=== PATIENT | male | born 1950 | race Caucasian/White ===

== ENCOUNTER 2018-12-02 11:22 | Emergency (ER) | payer OTHER ==
[~2018-12-02] VITALS: Ht 175.3 cm; Wt 57.6 kg
[~2018-12-02 11:22] MED LIST: CYCL10 PO; Norco 5-325 Ta1 EACH PO
[2018-12-02] MEDS ORDERED: [UNRECOGNIZED DRUG - OTHER] SC (11:34)
[2018-12-02] MEDS ORDERED: IBUP400 PO (11:34)
[2018-12-02 12:55] LABS: BASOPHILS ABSOLUTE AUTO 0.04 K/mm3 (0.00-0.23); BASOPHILS PERCENT AUTO 1 % (0-2); EOSINOPHILS ABSOLUTE AUTO 0.02 K/mm3 (0.00-0.68); EOSINOPHILS PERCENT AUTO 0 % (0-6); Hematocrit 35.8 % (37.0-53.0); Hemoglobin 11.5 g/dL (13.5-17.5); IMMATURE GRAN ABSOLUTE AUTO 0.05 K/mm3 (0.00-0.10); IMMATURE GRAN PERCENT AUTO 1 % (0-1); LYMPHOCYTES ABSOLUTE AUTO 0.54 K/mm3 (0.84-5.20); LYMPHOCYTES PERCENT AUTO 9 % (21-46); MONOCYTES ABSOLUTE AUTO 0.21 K/mm3 (0.16-1.47); MONOCYTES PERCENT AUTO 4 % (4-13); Mean Corpuscular HGB 29.8 pg (26.0-34.0); Mean Corpuscular HGB Conc 32.1 g/dL (31.5-36.5); Mean Corpuscular Volume 93 fL (80-100); Mean Platelet Volume 9.8 fL (9.1-12.4); NEUTROPHILS PERCENT AUTO 85 % (41-73); Platelet Count 279 K/mm3 (150-400); RDW Coefficient Variation 13.5 % (11.7-14.2); RDW Standard Deviation 45.8 fL (35.1-46.3); Red Blood Cell Count 3.86 M/mm3 (4.30-5.90); White Blood Cell Count 5.86 K/mm3 (4.00-11.30)
[2018-12-02 13:10] LABS: Bilirubin, Urine Neg (Neg); Blood, Urine Neg (Neg); Glucose Qualitative, Urine Neg (Neg); Ketones, Urine 3+ (Neg); Leukocyte Esterase, Urine Neg (Neg); Nitrite, Urine Neg (Neg); Protein, Urine 2+ (Neg); Specific Gravity, Urine 1.015 (1.003-1.022); Urobilinogen, Urine NORM (Normal); pH, Urine 6.5 (5.0-8.0)
[2018-12-02 13:10] LABS: Alanine Aminotransfer (ALT/SGP 20 U/L (12-78); Albumin, Blood 3.8 g/dL (3.4-5.0); Albumin/Globulin Ratio 0.8 (0.8-1.8); Alk Phos 37 U/L (50-136); Anion Gap 6 mmol/L (6-16); Aspartate Aminotrans (AST/SGOT 15 U/L (12-37); Bilirubin, Total 0.6 mg/dL (0.1-1.0); Blood Urea Nitrogen 17 mg/dL (8-24); CO2, Blood 30 mmol/L (21-32); Calcium, Blood 9.4 mg/dL (8.5-10.1); Chloride, Blood 103 mmol/L (98-108); Creatinine, Blood 0.65 mg/dL (0.60-1.20); Globulin, Blood 4.7 g/dL (2.2-4.0); Glomerular Filtration Rate >60 (60-); Glucose, Blood 110 mg/dL (70-99); Sodium, Blood 139 mmol/L (136-145); Total Protein, Blood 8.5 g/dL (6.4-8.2)
[2018-12-02 13:40] LABS: U Amphetamine Screen Not Detected; U Barbituate Screen Not Detected; U Benzodiazapine Screen Not Detected; U Buprenorphine Screen Not Detected; U Cannabinoids Screen DETECTED; U Cocaine Screen Not Detected; U Methadone Screen Not Detected; U Methamphetamine Screen Not Detected; U Opiates Screen Not Detected; U Oxycodone Screen Not Detected; U Phencyclidine Screen Not Detected; U Propoxyphene Screen Not Detected
[2018-12-02 13:59] LABS: Appearance, Urine Clear (Clear); Color, Urine Yellow (P-Yellow)
[2018-12-02 14:02] LABS: Bacteria Mod /hpf; Mucus Light (0-Heavy); Red Blood Cells, Urine Not Seen /hpf (0-2); Squamous Epithelial Cells Not Seen /hpf (Few); White Blood Cells, Urine Rare /hpf (0-5)
[2018-12-02] MEDS ORDERED: LEVE500 PO (14:13)
== END 2018-12-02 14:54 | disposition home or self-care (01) ==
LOC: ER 11:22
PROVIDERS: Emergency Medicine
DX: R56.9 Unspecified convulsions (principal); C61 Malignant neoplasm of prostate; Z79.899 Other long term (current) drug therapy; F17.200 Nicotine dependence, unspecified, uncomplicated
CPT/HCPCS: 70470; 71045; 80053; 81001; 85025; 87086; 93005; 93010; 99285-25; Q9967

== ENCOUNTER → 2018-12-09 | Outpatient (CLI) | payer OTHER ==
[~2018-12-09] MED LIST changes: +IBUP400 PO; +LEVE500 PO; +[UNRECOGNIZED DRUG - OTHER] SC
[2018-12-09 11:57] LABS: Source, Urine Clean Catch
[2018-12-09 12:39] LABS: Appearance, Urine Clear (Clear); Bilirubin, Urine Neg (Neg); Blood, Urine Neg (Neg); Color, Urine Yellow (P-Yellow); Glucose Qualitative, Urine Neg (Neg); Ketones, Urine Neg (Neg); Leukocyte Esterase, Urine Neg (Neg); Nitrite, Urine Neg (Neg); Protein, Urine Neg (Neg); Specific Gravity, Urine 1.005 (1.003-1.022); Urobilinogen, Urine NORM (Normal)
== END | disposition home or self-care (01) ==
LOC: LAB SHORT 11:55 → LAB 11:55
PROVIDERS: Radiology Therapeutic Radiology
DX: R30.0 Dysuria (principal)
CPT/HCPCS: 81003

== ENCOUNTER 2019-12-28 11:02 | Emergency (ER) | payer OTHER ==
[~2019-12-28] VITALS: Ht 180.3 cm; Wt 65.8 kg
[2019-12-28 12:24] LABS: BASOPHILS ABSOLUTE AUTO 0.02 K/mm3 (0.00-0.23); BASOPHILS PERCENT AUTO 0 % (0-2); EOSINOPHILS PERCENT AUTO 0 % (0-6); Hematocrit 40.5 % (37.0-53.0); Hemoglobin 13.5 g/dL (13.5-17.5); IMMATURE GRAN ABSOLUTE AUTO 0.05 K/mm3 (0.00-0.10); IMMATURE GRAN PERCENT AUTO 1 % (0-1); LYMPHOCYTES PERCENT AUTO 3 % (21-46); MONOCYTES ABSOLUTE AUTO 0.31 K/mm3 (0.16-1.47); MONOCYTES PERCENT AUTO 3 % (4-13); Mean Corpuscular HGB 30.1 pg (26.0-34.0); Mean Corpuscular HGB Conc 33.3 g/dL (31.5-36.5); Mean Corpuscular Volume 90 fL (80-100); Mean Platelet Volume 9.8 fL (9.1-12.4); NEUTROPHILS ABSOLUTE AUTO 8.66 K/mm3 (1.96-9.15); NEUTROPHILS PERCENT AUTO 93 % (41-73); Platelet Count 268 K/mm3 (150-400); RDW Coefficient Variation 15.1 % (11.7-14.2); Red Blood Cell Count 4.49 M/mm3 (4.30-5.90); White Blood Cell Count 9.34 K/mm3 (4.00-11.30)
[2019-12-28 12:44] LABS: Alanine Aminotransfer (ALT/SGP 20 U/L (12-78); Albumin, Blood 3.6 g/dL (3.4-5.0); Albumin/Globulin Ratio 0.9 (0.8-1.8); Alk Phos 42 U/L (50-136); Anion Gap 7 mmol/L (6-16); Aspartate Aminotrans (AST/SGOT 31 U/L (12-37); Bilirubin, Total 0.8 mg/dL (0.1-1.0); Blood Urea Nitrogen 15 mg/dL (8-24); Bun/Creatinine Ratio 24.5 (12.0-20.0); CO2, Blood 28 mmol/L (21-32); Calcium, Blood 9.3 mg/dL (8.5-10.1); Chloride, Blood 103 mmol/L (98-108); Creatinine, Blood 0.61 mg/dL (0.60-1.20); Ethanol (Alcohol), Blood, Med <3 mg/dL; Globulin, Blood 4.2 g/dL (2.2-4.0); Glomerular Filtration Rate >60 (60-); Glucose, Blood 140 mg/dL (70-99); Potassium, Blood 4.2 mmol/L (3.5-5.5); Sodium, Blood 138 mmol/L (136-145); Total Protein, Blood 7.8 g/dL (6.4-8.2)
[2019-12-28 12:45] LABS: Troponin I <0.015 ng/mL (0.000-0.040)
[2019-12-28] MEDS ORDERED: Dilantin 100 m100 MG PO (17:48)
== END 2019-12-28 18:39 | disposition home or self-care (01) ==
LOC: ER 11:02
PROVIDERS: Emergency Medicine
DX: R56.9 Unspecified convulsions (principal); F32.9 Major depressive disorder, single episode, unspecified; F17.200 Nicotine dependence, unspecified, uncomplicated; Z85.46 Personal history of malignant neoplasm of prostate; Z85.828 Personal history of other malignant neoplasm of skin
CPT/HCPCS: 36415; 70450; 71045; 80053; 83735; 84484; 85025; 93005; 93010; 96361; 96374; 96375; 99285-25; G0480; J2060; J2405; J7120; Q2009

== ENCOUNTER 2021-03-09 16:57 | Emergency (ER) | payer OTHER ==
[~2021-03-09] VITALS: Ht 180.3 cm; Wt 81.7 kg
[~2021-03-09 16:57] MED LIST changes: +Dilantin 100 m100 MG PO
[2021-03-09 17:32] LABS: BASOPHILS ABSOLUTE AUTO 0.03 K/mm3 (0.00-0.23); BASOPHILS PERCENT AUTO 0 % (0-2); EOSINOPHILS ABSOLUTE AUTO 0.06 K/mm3 (0.00-0.68); EOSINOPHILS PERCENT AUTO 1 % (0-6); Hematocrit 41.4 % (37.0-53.0); Hemoglobin 13.6 g/dL (13.5-17.5); IMMATURE GRAN ABSOLUTE AUTO 0.04 K/mm3 (0.00-0.10); IMMATURE GRAN PERCENT AUTO 0 % (0-1); LYMPHOCYTES ABSOLUTE AUTO 0.59 K/mm3 (0.84-5.20); LYMPHOCYTES PERCENT AUTO 6 % (21-46); MONOCYTES PERCENT AUTO 6 % (4-13); Mean Corpuscular HGB 30.6 pg (26.0-34.0); Mean Corpuscular HGB Conc 32.9 g/dL (31.5-36.5); Mean Corpuscular Volume 93 fL (80-100); Mean Platelet Volume 9.9 fL (9.1-12.4); NEUTROPHILS ABSOLUTE AUTO 8.08 K/mm3 (1.96-9.15); NEUTROPHILS PERCENT AUTO 86 % (41-73); Platelet Count 239 K/mm3 (150-400); RDW Coefficient Variation 13.3 % (11.7-14.2); RDW Standard Deviation 45.2 fL (35.1-46.3); Red Blood Cell Count 4.45 M/mm3 (4.30-5.90)
[2021-03-09 17:52] LABS: Alanine Aminotransfer (ALT/SGP 36 U/L (12-78); Albumin, Blood 3.9 g/dL (3.4-5.0); Albumin/Globulin Ratio 0.9 (0.8-1.8); Alk Phos 69 U/L (50-136); Anion Gap 5 mmol/L (6-16); Aspartate Aminotrans (AST/SGOT 20 U/L (12-37); Bilirubin, Total 0.4 mg/dL (0.1-1.0); Blood Urea Nitrogen 16 mg/dL (8-24); Bun/Creatinine Ratio 21.6 (12.0-20.0); CO2, Blood 27 mmol/L (21-32); Calcium, Blood 9.5 mg/dL (8.5-10.1); Chloride, Blood 104 mmol/L (98-108); Creatinine, Blood 0.74 mg/dL (0.60-1.20); Globulin, Blood 4.2 g/dL (2.2-4.0); Glomerular Filtration Rate >60 (60-); Glucose, Blood 123 mg/dL (70-99); Potassium, Blood 3.9 mmol/L (3.5-5.5); Sodium, Blood 136 mmol/L (136-145); Total Protein, Blood 8.1 g/dL (6.4-8.2)
[2021-03-09] MEDS ORDERED: PHENY100ER PO ×2 (19:51→19:52)
[2021-03-09] MEDS ORDERED: DOCU100 PO (21:01)
[2021-03-09] MEDS ORDERED: PROCTOSOL HC EXT (21:01)
[2021-03-09] MEDS ORDERED: AMOCLA875 PO (21:01)
== END 2021-03-09 21:28 | disposition home or self-care (01) ==
LOC: ER 16:57
PROVIDERS: Physician Assistant
DX: K52.9 Noninfective gastroenteritis and colitis, unspecified (principal); K59.00 Constipation, unspecified; K64.4 Residual hemorrhoidal skin tags
CPT/HCPCS: 74177; 80053; 85025; 86850; 86900; 86901; 93005; 93010; 99284-25; A9270; J7030; Q9967

== ENCOUNTER → 2022-06-17 | Outpatient (CLI) | payer OTHER ==
[~2022-06-17] MED LIST changes: +AMOCLA875 PO; +DOCU100 PO; +PHENY100ER PO; +PROCTOSOL HC EXT
[2022-06-17 11:26] LABS: BASOPHILS ABSOLUTE AUTO 0.02 K/mm3 (0.00-0.23); BASOPHILS PERCENT AUTO 0 % (0-2); EOSINOPHILS ABSOLUTE AUTO 0.17 K/mm3 (0.00-0.68); EOSINOPHILS PERCENT AUTO 3 % (0-6); Hematocrit 40.3 % (37.0-53.0); Hemoglobin 13.4 g/dL (13.5-17.5); IMMATURE GRAN ABSOLUTE AUTO 0.05 K/mm3 (0.00-0.10); IMMATURE GRAN PERCENT AUTO 1 % (0-1); LYMPHOCYTES ABSOLUTE AUTO 0.99 K/mm3 (0.84-5.20); LYMPHOCYTES PERCENT AUTO 17 % (21-46); MONOCYTES ABSOLUTE AUTO 0.52 K/mm3 (0.16-1.47); MONOCYTES PERCENT AUTO 9 % (4-13); Mean Corpuscular HGB 30.7 pg (26.0-34.0); Mean Corpuscular HGB Conc 33.3 g/dL (31.5-36.5); Mean Corpuscular Volume 92 fL (80-100); Mean Platelet Volume 9.8 fL (9.1-12.4); NEUTROPHILS ABSOLUTE AUTO 3.99 K/mm3 (1.96-9.15); NEUTROPHILS PERCENT AUTO 70 % (41-73); Platelet Count 238 K/mm3 (150-400); RDW Coefficient Variation 13.8 % (11.7-14.2); RDW Standard Deviation 46.5 fL (35.1-46.3); Red Blood Cell Count 4.37 M/mm3 (4.30-5.90); White Blood Cell Count 5.74 K/mm3 (4.00-11.30)
[2022-06-17 11:48] LABS: Albumin, Blood 3.6 g/dL (3.4-5.0); Albumin/Globulin Ratio 0.9 (0.8-1.8); Bilirubin, Total 0.2 mg/dL (0.1-1.0); Bun/Creatinine Ratio 21.7 (12.0-20.0); Calcium, Blood 9.8 mg/dL (8.5-10.1); Creatinine, Blood 0.83 mg/dL (0.60-1.20); Globulin, Blood 3.9 g/dL (2.2-4.0); Potassium, Blood 4.5 mmol/L (3.5-5.5); Total Protein, Blood 7.5 g/dL (6.4-8.2)
== END | disposition home or self-care (01) ==
LOC: LAB SHORT 11:16 → LAB 11:16
PROVIDERS: Family Medicine
DX: R07.9 Chest pain, unspecified (principal)
CPT/HCPCS: 80053; 83880; 84484; 85025

== ENCOUNTER 2022-07-01 09:27 | Emergency (ER) | payer OTHER ==
[~2022-07-01] VITALS: Ht 180.3 cm; Wt 105.7 kg
[2022-07-01 10:30] LABS: Bun/Creatinine Ratio 23.4 (12.0-20.0); Calcium, Blood 9.9 mg/dL (8.5-10.1); Creatinine, Blood 0.68 mg/dL (0.60-1.20); Potassium, Blood 4.4 mmol/L (3.5-5.5)
[2022-07-01] MEDS ORDERED: K-TAB ER20 ME1 PO (10:39)
[2022-07-01] MEDS ORDERED: Lasix40 MG PO (10:39)
== END 2022-07-01 10:43 | disposition home or self-care (01) ==
LOC: ER 09:27
PROVIDERS: Emergency Medicine
DX: R60.0 Localized edema (principal); F17.290 Nicotine dependence, other tobacco product, uncomplicated; Z79.899 Other long term (current) drug therapy
CPT/HCPCS: 36415; 80048

== ENCOUNTER 2022-07-16 17:44 | Emergency (ER) | payer OTHER ==
[~2022-07-16] VITALS: Ht 180.3 cm; Wt 104.8 kg
[~2022-07-16 17:44] MED LIST changes: +K-TAB ER20 ME1 PO; +Lasix40 MG PO
[2022-07-16] MEDS ORDERED: FUROSEMIDE40 MG PO (18:19)
[2022-07-16] MEDS ORDERED: SPIRIVA RESPIMAT4 G3 IH (18:20)
[2022-07-16] MEDS ORDERED: Potassium Chlo20 ME1 PO (18:20)
[2022-07-16] MEDS ORDERED: PHENYTOIN SODI100 MG PO (18:20)
[2022-07-16 18:25] LABS: BASOPHILS ABSOLUTE AUTO 0.03 K/mm3 (0.00-0.23); BASOPHILS PERCENT AUTO 1 % (0-2); EOSINOPHILS ABSOLUTE AUTO 0.22 K/mm3 (0.00-0.68); EOSINOPHILS PERCENT AUTO 4 % (0-6); Hematocrit 39.9 % (37.0-53.0); Hemoglobin 12.8 g/dL (13.5-17.5); IMMATURE GRAN ABSOLUTE AUTO 0.03 K/mm3 (0.00-0.10); IMMATURE GRAN PERCENT AUTO 1 % (0-1); LYMPHOCYTES ABSOLUTE AUTO 0.99 K/mm3 (0.84-5.20); LYMPHOCYTES PERCENT AUTO 19 % (21-46); MONOCYTES ABSOLUTE AUTO 0.41 K/mm3 (0.16-1.47); MONOCYTES PERCENT AUTO 8 % (4-13); Mean Corpuscular HGB 29.2 pg (26.0-34.0); Mean Corpuscular HGB Conc 32.1 g/dL (31.5-36.5); Mean Corpuscular Volume 91 fL (80-100); Mean Platelet Volume 9.9 fL (9.1-12.4); NEUTROPHILS ABSOLUTE AUTO 3.58 K/mm3 (1.96-9.15); NEUTROPHILS PERCENT AUTO 68 % (41-73); Platelet Count 243 K/mm3 (150-400); RDW Coefficient Variation 13.7 % (11.7-14.2); Red Blood Cell Count 4.39 M/mm3 (4.30-5.90); White Blood Cell Count 5.26 K/mm3 (4.00-11.30)
[2022-07-16 18:50] LABS: Albumin, Blood 3.5 g/dL (3.4-5.0); Albumin/Globulin Ratio 0.9 (0.8-1.8); Bilirubin, Total 0.2 mg/dL (0.1-1.0); Bun/Creatinine Ratio 23.9 (12.0-20.0); Calcium, Blood 9.1 mg/dL (8.5-10.1); Creatinine, Blood 0.88 mg/dL (0.60-1.20); Globulin, Blood 3.9 g/dL (2.2-4.0); Potassium, Blood 4.1 mmol/L (3.5-5.5); Total Protein, Blood 7.4 g/dL (6.4-8.2)
[2022-07-16] MEDS ORDERED: Prednisone20 MG PO (20:23)
[2022-07-16] MEDS ORDERED: FLUT1DIS5 INH (20:23)
== END 2022-07-16 20:35 | disposition home or self-care (01) ==
LOC: ER 17:44
PROVIDERS: Emergency Medicine
DX: J44.9 Chronic obstructive pulmonary disease, unspecified (principal); R79.89 Other specified abnormal findings of blood chemistry; G40.909 Epilepsy, unspecified, not intractable, without status epilepticus; F32.A Depression, unspecified; Z79.899 Other long term (current) drug therapy; Z87.891 Personal history of nicotine dependence; Z28.310 Unvaccinated for COVID-19
CPT/HCPCS: 71260; 80053; 83880; 84484; 85025; 93005; 93010; 99284-25; J7512; Q9967

== ENCOUNTER → 2023-02-27 | Outpatient (CLI) | payer OTHER ==
[~2023-02-27] MED LIST changes: +FLUT1DIS5 INH; +FUROSEMIDE40 MG PO; +PHENYTOIN SODI100 MG PO; +Potassium Chlo20 ME1 PO; +Prednisone20 MG PO; +SPIRIVA RESPIMAT4 G3 IH
== END | disposition home or self-care (01) ==
LOC: LAB 10:20 → LAB SHORT 10:20
DX: E11.8 Type 2 diabetes mellitus with unspecified complications (principal)
CPT/HCPCS: 82043

== ENCOUNTER 2024-09-19 16:59 | Inpatient (IN) | payer OTHER ==
[~2024-09-19] VITALS: Ht 180.3 cm; Wt 114.5 kg
[~2024-09-19 16:59] MED LIST changes: +ALBU90OI INH; +PRED20 PO; -SPIRIVA RESPIMAT4 G3 IH; +SPIRIVA RESPIMAT4 G3 PO
[2024-09-19] MEDS ORDERED: Morphine Sulfate 4 MG/1 ML Injection IV ONE (17:10)
[2024-09-19 17:14] LABS: BASOPHILS ABSOLUTE AUTO 0.05 K/mm3 (0.00-0.23); BASOPHILS PERCENT AUTO 1 % (0-2); EOSINOPHILS ABSOLUTE AUTO 0.16 K/mm3 (0.00-0.68); EOSINOPHILS PERCENT AUTO 2 % (0-6); IMMATURE GRAN ABSOLUTE AUTO 0.21 K/mm3 (0.00-0.10); IMMATURE GRAN PERCENT AUTO 2 % (0-1); LYMPHOCYTES ABSOLUTE AUTO 2.29 K/mm3 (0.84-5.20); LYMPHOCYTES PERCENT AUTO 25 % (21-46); MONOCYTES ABSOLUTE AUTO 0.71 K/mm3 (0.16-1.47); MONOCYTES PERCENT AUTO 8 % (4-13); Mean Corpuscular HGB 28.7 pg (26.0-34.0); Mean Corpuscular HGB Conc 32.6 g/dL (31.5-36.5); Mean Corpuscular Volume 88 fL (80-100); Mean Platelet Volume 9.5 fL (9.1-12.4); NEUTROPHILS ABSOLUTE AUTO 5.92 K/mm3 (1.96-9.15); NEUTROPHILS PERCENT AUTO 64 % (41-73); Platelet Count 296 K/mm3 (150-400); RDW Coefficient Variation 15.3 % (11.7-14.2); RDW Standard Deviation 49.3 fL (35.1-46.3); Red Blood Cell Count 4.88 M/mm3 (4.30-5.90); White Blood Cell Count 9.34 K/mm3 (4.00-11.30)
[2024-09-19 17:33] LABS: International Normalized Ratio 0.97; Prothrombin Time Results 10.4 Sec (9.7-11.5)
[2024-09-19 17:34] LABS: Ethanol (Alcohol), Blood, Med <3 mg/dL; Salicylate 2.7 mg/dL (2.8-20.0)
[2024-09-19 17:36] LABS: Alanine Aminotransfer (ALT/SGP 33 U/L (12-78); Albumin, Blood 3.8 g/dL (3.4-5.0); Albumin/Globulin Ratio 0.9 (0.8-1.8); Alk Phos 51 U/L (50-136); Anion Gap 13 mmol/L (3-11); Aspartate Aminotrans (AST/SGOT 38 U/L (12-37); Bilirubin, Total 0.2 mg/dL (0.1-1.0); Blood Urea Nitrogen 20 mg/dL (8-24); Bun/Creatinine Ratio 21.5 (12.0-20.0); CO2, Blood 23 mmol/L (21-32); Calcium, Blood 8.8 mg/dL (8.5-10.1); Chloride, Blood 105 mmol/L (98-108); Creatinine, Blood 0.93 mg/dL (0.60-1.20); Globulin, Blood 4.2 g/dL (2.2-4.0); Glomerular Filtration Rate 86 (60-); Glucose, Blood 176 mg/dL (70-99); Potassium, Blood 3.9 mmol/L (3.5-5.5); Sodium, Blood 137 mmol/L (136-145)
[2024-09-19 17:37] LABS: Acetaminophen, Random <2.0 ug/mL (10.0-30.0)
[2024-09-19] MEDS ORDERED: Ipratropium/Albuterol SulF 2.5-0.5MG/3 ML Amp INH ONE (18:25)
[2024-09-19] MEDS ORDERED: Tiotropium Bromide 2.5 MCG/ACT MIST INHAL (10 ACT/4 GM) INH SCH (20:00)
[2024-09-19] MEDS ORDERED: Albuterol 2.5 MG/3 ML VIAL INH PRN (20:00)
[2024-09-19] MEDS ORDERED: Mometasone/Formoterol MDI 200/5 mcg 13 GM INH SCH (20:05)
[2024-09-19] MEDS ORDERED: FentaNYL Citrate 50 MCG/ML 2 ML Injection IV PRN ×2 (21:05→22:00)
[2024-09-19] MEDS ORDERED: FARXIGA10 MG PO (22:17)
[2024-09-19] MEDS ORDERED: Crestor40 MG PO (22:18)
[2024-09-19 22:21] LABS: Source, Urine Clean Catch
[2024-09-19 22:22] VITALS: BP 126/69
[2024-09-19 22:23] LABS: Appearance, Urine Clear (Clear); Bilirubin, Urine Neg (Neg); Blood, Urine 2+ (Neg); Color, Urine Yellow (P-Yellow); Glucose Qualitative, Urine 4+ (Neg); Ketones, Urine Neg (Neg); Leukocyte Esterase, Urine Neg (Neg); Nitrite, Urine Neg (Neg); Protein, Urine 2+ (Neg); Urobilinogen, Urine NORM (Normal); pH, Urine 6.5 (5.0-8.0)
[2024-09-19 22:31] LABS: Bacteria Not Seen /hpf; Hyaline Casts 0-2 /lpf (0-2); Red Blood Cells, Urine 0-2 /hpf (0-2); Squamous Epithelial Cells Rare /hpf (Few); White Blood Cells, Urine Not Seen /hpf (0-5)
[2024-09-19 22:37] LABS: U Amphetamine Screen Not Detected; U Barbituate Screen DETECTED; U Benzodiazapine Screen Not Detected; U Buprenorphine Screen Not Detected; U Cannabinoids Screen Not Detected; U Cocaine Screen Not Detected; U Methadone Screen Not Detected; U Methamphetamine Screen Not Detected; U Opiates Screen DETECTED; U Oxycodone Screen Not Detected; U Phencyclidine Screen Not Detected
[2024-09-20 05:18] VITALS: BP 134/62
--- NOTE | 2024-09-20 05:36 | NUR ---
SHIFT SUMMARY NOC ADMIT FROM ED FOR SI HANGING ATTMEPT. PT ATTEMPTED TO HAND SELF FROM BRIDGE AFTER DOMESTIC DISPUTE WITH SPOUSE, THE ROPE AROUND NECK BROKE WHEN PT JUMPED. PT HAS RED ROPE BURN AROUND NECK WELL HEMATOMA ON L SIDE TEMPORAL, ALSO ABRASIONS BL KNEES FROM FALLING ON KNEES DURING IMPACT. PT HAS BEEN A/O X 4. PLEASANT AND COOPERATIVE WITH CARE SINCE ADMIT TO FLOOR. ROOM HAS BEEN MITIGATED FOR SI, WELL 1:1 NON CLINICAL SITTER. PT REPORTS NO CURRENT SI OR PLANS TO HARM OTHERS AT THIS TIME. PT HAS PSYCH CONSULT SCHEDULED FOR TODAY. PT ALSO HAS ACTIVE HX OF SEIZURES AND TAKES DILANTIN BID, AND FIRST DOSE GIVEN, AFTER MORNING DOSE NOT TAKEN. PT HAD BRIEF BOUT OF N/V AND VOMITTED TWICE, WHEN ASSESS PT DENIES ANY WORSENING NECK PAIN, SWALLOWING DIFFICULTIES, OR INCREASED SOB. PT ON O2 3L/NC WHICH IS BASELINE FOR PT 2-4L, SPO2 >92%. PT REPORTS BACK PAIN FROM FALL FROM SI ATTEMPT AND PREFERS TO SLEEP IN CHAIR INSTEAD OF BED. PT CURRENTLY RESTING WITH BED IN LOWEST POSITION, AND CALL LIGHT WITHIN REACH.
[2024-09-20 07:08] VITALS: BP 140/65
[2024-09-20] MEDS ORDERED: Enoxaparin 40 MG/0.4 ML SYR SC SCH (09:00)
[2024-09-20] MEDS ORDERED: FLUTICASONE-SAL12 G1 PO (15:32)
[2024-09-20 15:36] VITALS: BP 152/65
--- NOTE | 2024-09-20 15:48 | NUR ---
SHIFT SUMMARY- PT HAS A 1:1 SITTER FOR SI. PT STATES HIS PAIN IS WELL MANAGED AT THIS TIME, HE HAS PAIN, BUT IT'S "NOTHING I CAN'T HANDLE RIGHT NOW." PT WAS INSTRUCTED TO CALL FOR ASSISTANCE IF THE PAIN GETS TO A LEVEL WHERE HE FEELS HE NEEDS PAIN MEDICATION. PROVIDED THE PT WITH A WARM BLANKET, HE IS RECLINED IN HIS BED IN CHAIR MODE AT THIS TIME AND SEEMS TO BE TOLLERATING THAT BETTER THAN THE CHAIR. PT WAS SEEN BY DR MUIR AND HE ORDERED NEW MEDICATIONS TO START THIS EVENING. PT DAUGHTER HAS BEEN IN TO SEE HIM, SPOUSE CAME IN WHEN THE DR WAS AT THE BEDSIDE AND SHE LEFT CLOTHES FOR HIM (PLACED IN THE CHART CUBB[place]). PT STILL HIGH SI, ALTHOUGH HE DENIES ANY THOUGHTS AT THIS TIME.
[2024-09-20] MEDS ORDERED: TraMADol HCl 50 MG Tab PO PRN (19:35)
[2024-09-20 19:50] VITALS: BP 145/74
[2024-09-20] MEDS ORDERED: QUEtiapine Fumarate 25 MG Tab PO SCH (21:00)
--- NOTE | 2024-09-21 04:11 | NUR ---
SHIFT SUMMARY ADMITTED FOR SI. FULL CODE. I DID CALL THE HOSPITALIST THIS SHIFT FOR PO PAIN RX. IV PAIN RX WAS DC'D. THE PT STATES THAT THE PO PAIN RX HAS BEEN VERY EFFECTIVE AND HE HAS GOTTEN GOOD SLEEP THIS SHIFT. HE IS CALM AND COOPERATIVE WITH CARE. SITTER IN ROOM. PSYCH CONSULT IS DR. RICHMOND. 3 LPM O2 VIA NC. REGULAR DIET.
[2024-09-21 04:49] VITALS: BP 139/74
[2024-09-21 06:56] LABS: BASOPHILS ABSOLUTE AUTO 0.02 K/mm3 (0.00-0.23); BASOPHILS PERCENT AUTO 0 % (0-2); EOSINOPHILS ABSOLUTE AUTO 0.18 K/mm3 (0.00-0.68); EOSINOPHILS PERCENT AUTO 3 % (0-6); Hematocrit 40.3 % (37.0-53.0); Hemoglobin 12.7 g/dL (13.5-17.5); IMMATURE GRAN ABSOLUTE AUTO 0.03 K/mm3 (0.00-0.10); IMMATURE GRAN PERCENT AUTO 1 % (0-1); LYMPHOCYTES ABSOLUTE AUTO 0.87 K/mm3 (0.84-5.20); LYMPHOCYTES PERCENT AUTO 14 % (21-46); MONOCYTES PERCENT AUTO 10 % (4-13); Mean Corpuscular HGB 28.3 pg (26.0-34.0); Mean Corpuscular HGB Conc 31.5 g/dL (31.5-36.5); Mean Corpuscular Volume 90 fL (80-100); Mean Platelet Volume 9.9 fL (9.1-12.4); NEUTROPHILS ABSOLUTE AUTO 4.41 K/mm3 (1.96-9.15); NEUTROPHILS PERCENT AUTO 72 % (41-73); Platelet Count 210 K/mm3 (150-400); RDW Coefficient Variation 15.6 % (11.7-14.2); Red Blood Cell Count 4.49 M/mm3 (4.30-5.90); White Blood Cell Count 6.11 K/mm3 (4.00-11.30)
[2024-09-21 07:13] LABS: Bun/Creatinine Ratio 28.8 (12.0-20.0); Calcium, Blood 8.8 mg/dL (8.5-10.1); Creatinine, Blood 0.83 mg/dL (0.60-1.20); Potassium, Blood 4.3 mmol/L (3.5-5.5)
[2024-09-21] MEDS ORDERED: Docusate Sodium/Senna 1 Tab PO PRN (13:10)
[2024-09-21] MEDS ORDERED: Polyethylene Glycol 3350 17 gm PO PRN (13:15)
[2024-09-21 15:54] VITALS: BP 137/68
[2024-09-21 19:10] VITALS: BP 146/62
--- NOTE | 2024-09-21 20:03 | NUR ---
SHIFT SUMMARY- PT HAS HAD NO ACUTE CHANGE T/O THE SHIFT. HE IS ALERT AND ORIENTED, HIS CALLED TO CHECK IN ON HIM, THE PT GAVE VERBAL CONSENT FOR STAFF TO TALK TO HER. PT IS SITTING IN THE RECLINER AT THE TIME OF REPORT. MEDICATED WITH TRAMADOL AT SHIFT CHANGE, NO S&S OF DISTRESS NOTED 1:1 SITTER PRESENT IN THE ROOM.
[2024-09-22 03:46] VITALS: BP 133/66
--- NOTE | 2024-09-22 04:02 | NUR ---
SHIFT SUMMARY ADMITTED FOR SI. FULL CODE. HIGH SI PRECAUTIONS. PLAN IS FOR INPATIENT PSYCH PLACEMENT. REGULAR DIET. STANDBY ASSIST - BRP. DR. MUIR IS PSYCH CONSULT. A&O X4. ON 3 1/2 LPM O2, ON 2-4 LPM O2 @ BASELINE. HX: COPD, PTSD. MEDICATED FOR PAIN THIS SHIFT. ULTRAM PO CONTINUES TO BE EFFECTIVE. HE IS PLEASANT AND COOPERATIVE WITH CARE.
[2024-09-22 07:07] VITALS: BP 143/82
--- NOTE | 2024-09-22 10:30 | NUR ---
PT HAS BECOME AGGITATED AFTER DR BECKETT CAME TO SEE HIM- PT DECIDED AFTER DR BECKETT TALKED TO HIM ABOUT INPATIENT PSYCH FACILITY AT [place], THAT HE NEEDED TO GET A DATA MANAGER. CALLED CARGO TRIM[employer] WHO CONFIRMED THE PT IS NOT IN A SITUATION WHERE A BRANDS EDITOR IS AVAILABLE TO HIM; HOWEVER HE WAS PROVIDED A PHONE AND OFFERED A PHONE BOOK TO OBTAIN LEGAL [place] IF HE WOULD LIKE. HE DECLINES THIS AT THIS TIME SAYING HE DOES NOT HAVE MONEY FOR A DATA MANAGER "JUST FORGET IT." HE ATTEMPTED TO CALL BOTH OF HIS DAUGHTERS AND HIS , AND WAS UNABLE TO REACH THEM. NOW HE IS AGGITATED SAYING HIS HAS HIS BANK CARDS AND "HAS PROBABLY ALREADY DRAINED THE ACCOUNTS." YESTERDAY HE VERBALLY TOLD THIS RN IS WAS OK TO TALK WITH HER. TODAY HE HAS DECIDED SHE CAN NOT HAVE ANY INFORMATION.
[2024-09-22] MEDS ORDERED: QUEtiapine Fumarate 25 MG Tab PO PRN (10:55)
[2024-09-22 15:16] VITALS: BP 139/89
--- NOTE | 2024-09-22 18:30 | NUR ---
Pt alert and oriented times four. Got angry earlier in the day and became distrustful of , did not want us to share information with her today. Two of his daughters visited today and spent time with pt, pt appears more calm with visits. Sitter remains in room. Pain controlled with PRN tramadol x 1.
[2024-09-22 20:13] VITALS: BP 139/61
[2024-09-22] MEDS ORDERED: QUEtiapine Fumarate 50 MG TAB PO SCH (21:00)
[2024-09-23 03:50] VITALS: BP 144/72
--- NOTE | 2024-09-23 06:46 | NUR ---
SHIFT SUMMARY PT IS ALERT AND ORIENTED TIMES 4. PT IS POLITE AND RECEPTIVE TO CARE AND SOCIAL WITH STAFF WHEN DOING ROUNDS. PT IS ABLE TO MAKE NEEDS KNOWN AND ABLE TO AMBULATE FROM BED TO RECLINER, AND TO THE RESTROOM. PT WAS HS MED COMPLIANT. PT SPENT A MAJORITY OF TIME IN RECLINER, WATCHING TV. BED IN LOW POSITION, CALL LIGHT WITHIN REACH, RAILS TIMES 2.
[2024-09-23 07:08] VITALS: BP 141/64
[2024-09-23] MEDS ORDERED: Empagliflozin 25 MG TAB PO SCH (09:00)
[2024-09-23] MEDS ORDERED: Rosuvastatin Calcium 10 MG Tab PO SCH (09:00)
[2024-09-23] MEDS ORDERED: MetFORMIN HCl 500 mg PO SCH (09:00)
[2024-09-23 16:55] VITALS: BP 152/67
--- NOTE | 2024-09-23 17:53 | NUR ---
SHIFT SUMMARY: PT A/O X4. PLEASANT AND COOPERATIVE WITH CARE. C/O PAIN ONCE THIS SHIFT IN LOWER BACK. MEDICATED WITH PRN TRAMADOL ONCE WITH AM MEDICATIONS. PT DAUGHTER IN ROOM T/O SHIFT. DR. MUIR IN TO SEE PT THIS SHIFT. INCREASED NIGHT TIME SEROQUEL. CALL LIGHT IN REACH.
[2024-09-23 19:49] VITALS: BP 147/89
[2024-09-23] MEDS ORDERED: QUEtiapine Fumarate 100 MG Tab PO SCH (21:00)
[2024-09-24 04:58] VITALS: BP 140/70
--- NOTE | 2024-09-24 06:30 | NUR ---
SHIFT SUMMARY PT IS ALERT AND ORIENTED TIMES 4. PT IS POLITE AND RECEPTIVE TO CARE AND SOCIAL WITH STAFF WHEN DOING ROUNDS. PT WAS VISITED BY DAUGHTER AND PLAYED CHESS. PT APPEARS IN VERY GOOD SPIRITS TODAY. PT IS ABLE TO MAKE NEEDS KNOWN AND ABLE TO AMBULATE FROM BED TO RECLINER, AND TO THE RESTROOM. PT WAS HS MED COMPLIANT. PT SPENT A MAJORITY OF TIME IN RECLINER, WATCHING TV. BED IN LOW POSITION, CALL LIGHT WITHIN REACH, RAILS TIMES 2.
[2024-09-24 07:18] VITALS: BP 154/64
--- NOTE | 2024-09-24 13:26 | NUR ---
NOTE: PATIENT A/OX4, CALM, PLEASANT AND COOPERATIVE c CARE. PATIENT DENIES SI OR HARMING HIMSELF OR OTHERS. DR. GALLEGOS CAME IN AND SPOKE TO PATIENT, SUICIDE PRECAUTIONS DC'D. 1:1 SITTER DC'D. STUDIO CONTROL OPERATOR, SRAVANI SHIN SPOKE TO PATIENT, PLAN TO DISCHARGE HOME THIS PM. PER STUDIO CONTROL OPERATOR, SRAVANI SHIN DAUGHTER WILL BE BRINGING PORTABLE HOME O2 THIS PM.
[2024-09-24 16:09] VITALS: BP 149/108
--- NOTE | 2024-09-24 16:38 | NUR ---
SHIFT SUMMARY: PATIENT A/OX4, PLEASANT AND COOPERATIVE c CARE. PATIENT DENIES SI OR HARMING HIMSELF/OTHERS. SUICIDE PRECAUTION, 1:1 SITTER WAS DC'D AT 1326 PER ORDER. PATIENT REPORTS PAIN TO HIP, MEDICATED FOR PAIN PER EMAR c GOOD EFFECT. PATIENT RECEIVED SCHEDULED MEDS PER EMAR. PATIENT HAS GREAT APPETITE, CONTINENT OF BLADDER, AMBULATES TO BATHROOM INDEPENDENTLY. VITAL SIGNS REVIEWED. PATIENT UP IN THE CHAIR ON/OFF T/O THE DAY.
[2024-09-24] MEDS ORDERED: QUET100 PO (17:18)
[2024-09-24] MEDS ORDERED: METF500 PO (17:18)
--- NOTE | 2024-09-24 17:43 | NUR ---
DISCHARGE SUMMARY: PATIENT DISCHARGE HOME. DISCHARGE INSTRUCTIONS PACKET GIVEN TO PATIENT. EDUCATED PATIENT REGARDING ADMITTING DX'S OF SI, S/S, TX, SELF CARE, NEW RX AND TO F/U c PCP. PATIENT VERBALIZED UNDERSTANDING AND NO FURTHER QUESTIONS. RX WAS FAXED TO PATIENT PREFERRED PHARMACY ([facility] ALL PATIENT PERSONAL BELONGINGS WERE SENT HOME c THE PATIENT. PATIENT LEFT THE ROOM AT 1736, TRANSPORTED VIA WHEELCHAIR BY GRABIEL HUNTER TO PATIENT ENTRANCE.
== END 2024-09-24 17:36 | disposition home or self-care (01) | DRG 605 ==
LOC: ER 16:59 → MEDS 17:00
PROVIDERS: Internal Medicine; Student in an Organized Health Care Education/Training Program; ADMIT Internal Medicine
DX: S10.91XA Abrasion of unspecified part of neck, initial encounter (principal); T71.162A Asphyxiation due to hanging, intentional self-harm, initial encounter; J96.11 Chronic respiratory failure with hypoxia; S80.02XA Contusion of left knee, initial encounter; S80.01XA Contusion of right knee, initial encounter; G40.909 Epilepsy, unspecified, not intractable, without status epilepticus; F32.A Depression, unspecified; J44.9 Chronic obstructive pulmonary disease, unspecified; Z88.8 Allergy status to other drugs, medicaments and biological substances; Z79.899 Other long term (current) drug therapy; Z85.828 Personal history of other malignant neoplasm of skin; Z85.46 Personal history of malignant neoplasm of prostate; Z87.891 Personal history of nicotine dependence; Z99.81 Dependence on supplemental oxygen; F43.10 Post-traumatic stress disorder, unspecified; X83.8XXA Intentional self-harm by other specified means, initial encounter; Y92.89 Other specified places as the place of occurrence of the external cause
CPT/HCPCS: 36415; 70450; 70498; 71045; 80048; 80053; 80320; 81001; 85025; 85610; 85730; 93005; 93010; 94640; 94664; 94760; 96372; 96374-59; 96375-59; 96376; 97162; 99285-25; A9270; G0378; G0480; J1650; J2270; J3010; Q9967

== ENCOUNTER → 2025-05-05 | Outpatient (CLI) | payer OTHER ==
[~2025-05-05] MED LIST changes: +Crestor40 MG PO; +FARXIGA10 MG PO; +FLUTICASONE-SAL12 G1 PO; +METF500 PO; +QUET100 PO
[2025-05-05 19:10] LABS: Creatinine, Urine Random 8.37 mg/dL (27.00-270.00); Microalb/Creat Ratio UR, Rand 172.043 mg/g (0.000-30.000); Microalbumin, Random Urine 14.4 mg/L (0.000-20.000)
== END ==
LOC: LAB SHORT 12:51 → LAB 12:51
PROVIDERS: Family Medicine
DX: E11.51 Type 2 diabetes mellitus with diabetic peripheral angiopathy without gangrene (principal)
CPT/HCPCS: 82043; 82570

== ENCOUNTER 2025-08-13 20:12 | Inpatient (IN) | payer OTHER ==
[~2025-08-13] VITALS: Ht 180.3 cm; Wt 117.7 kg
[~2025-08-13 20:12] MED LIST changes: +Enoxaparin 40 MG/0.4 ML SYR SC SCH
[2025-08-13 21:03] LABS: BASOPHILS ABSOLUTE AUTO 0.04 K/mm3 (0.00-0.23); BASOPHILS PERCENT AUTO 0 % (0-2); EOSINOPHILS ABSOLUTE AUTO 0.06 K/mm3 (0.00-0.68); EOSINOPHILS PERCENT AUTO 1 % (0-6); Hematocrit 42.2 % (37.0-53.0); Hemoglobin 13.6 g/dL (13.5-17.5); IMMATURE GRAN ABSOLUTE AUTO 0.05 K/mm3 (0.00-0.10); IMMATURE GRAN PERCENT AUTO 0 % (0-1); LYMPHOCYTES ABSOLUTE AUTO 0.55 K/mm3 (0.84-5.20); LYMPHOCYTES PERCENT AUTO 4 % (21-46); MONOCYTES ABSOLUTE AUTO 0.58 K/mm3 (0.16-1.47); MONOCYTES PERCENT AUTO 5 % (4-13); Mean Corpuscular HGB Conc 32.2 g/dL (31.5-36.5); Mean Corpuscular Volume 89 fL (80-100); NEUTROPHILS ABSOLUTE AUTO 11.71 K/mm3 (1.96-9.15); NEUTROPHILS PERCENT AUTO 90 % (41-73); NRBC ABSOLUTE 0.00 K/mm3 (0.00-0.02); NRBC Auto 0.0 /100 WBC (0.0-0.2); Platelet Count 190 K/mm3 (150-400); RDW Coefficient Variation 15.5 % (11.7-14.2); RDW Standard Deviation 50.5 fL (35.1-46.3)
[2025-08-13 21:24] LABS: Alanine Aminotransfer (ALT/SGP 49.0 U/L (12-78); Albumin, Blood 3.9 g/dL (3.4-5.0); Albumin/Globulin Ratio 1.0 (0.8-1.8); Anion Gap 10.0 mmol/L (3-11); Aspartate Aminotrans (AST/SGOT 30.0 U/L (12-37); Bilirubin, Total 0.3 mg/dL (0.1-1.0); Blood Urea Nitrogen 30.0 mg/dL (8-24); CO2, Blood 29.0 mmol/L (21-32); Calcium, Blood 9.9 mg/dL (8.5-10.1); Chloride, Blood 99.0 mmol/L (98-108); Creatinine, Blood 0.87 mg/dL (0.60-1.20); Globulin, Blood 3.8 g/dL (2.2-4.0); Glucose, Blood 172.0 mg/dL (70-99); Potassium, Blood 4.2 mmol/L (3.5-5.5); Sodium, Blood 134.0 mmol/L (136-145); Total Protein, Blood 7.7 g/dL (6.4-8.2)
[2025-08-13] MEDS ORDERED: NS 1,000 ML IV SCH (22:40)
[2025-08-13] MEDS ORDERED: CefTRIAXone Sodium 1,000 MG in NS 100 ML IV ONE (23:15)
[2025-08-13] MEDS ORDERED: Ondansetron HCl 2 MG / ML 2ML Vial IV PRN (23:40)
[2025-08-13] MEDS ORDERED: NS 1,000 ML IV ONE (23:40)
[2025-08-13] MEDS ORDERED: Ipratropium/Albuterol SulF 2.5-0.5MG/3 ML Amp INH PRN (23:40)
[2025-08-13] MEDS ORDERED: Enoxaparin 40 MG/0.4 ML SYR SC SCH (23:45)
[2025-08-14 00:34] LABS: BASOPHILS PERCENT AUTO 0 % (0-2); NRBC ABSOLUTE 0.00 K/mm3 (0.00-0.02)
[2025-08-14 00:45] LABS: Source, Urine Clean Catch
[2025-08-14 00:53] LABS: Bilirubin, Urine Neg (Neg); Glucose Qualitative, Urine 4+ (Neg); Ketones, Urine Neg (Neg); Leukocyte Esterase, Urine Neg (Neg); Protein, Urine 3+ (Neg); Specific Gravity, Urine 1.015 (1.003-1.022); Urobilinogen, Urine NORM (Normal)
[2025-08-14 01:00] LABS: Influenza A, PCR NEGATIVE (NEGATIVE); Influenza B, PCR NEGATIVE (NEGATIVE); Resp Syncytial Virus, PCR NEGATIVE (NEGATIVE); SARS-Cov-2 (COVID-19) PCR, MMC NEGATIVE (NEGATIVE)
[2025-08-14 01:04] LABS: Color, Urine Yellow (P-Yellow)
[2025-08-14 01:06] LABS: Red Blood Cells, Urine 0-2 /hpf (0-2); White Blood Cells, Urine 0-2 /hpf (0-5)
[2025-08-14 01:40] LABS: Hematocrit 35.9 % (37.0-53.0); Hemoglobin 11.7 g/dL (13.5-17.5)
[2025-08-14] MEDS ORDERED: NS 1,000 ML IV ONE (01:40)
[2025-08-14 02:08] LABS: Alanine Aminotransfer (ALT/SGP 41.0 U/L (12-78); Albumin, Blood 3.1 g/dL (3.4-5.0); Albumin/Globulin Ratio 0.9 (0.8-1.8); Anion Gap 10.0 mmol/L (3-11); Aspartate Aminotrans (AST/SGOT 28.0 U/L (12-37); Bilirubin, Total 0.2 mg/dL (0.1-1.0); Blood Urea Nitrogen 29.0 mg/dL (8-24); CO2, Blood 24.0 mmol/L (21-32); Chloride, Blood 104.0 mmol/L (98-108); Creatinine, Blood 0.9 mg/dL (0.60-1.20); Globulin, Blood 3.6 g/dL (2.2-4.0); Glucose, Blood 205.0 mg/dL (70-99); Potassium, Blood 4.1 mmol/L (3.5-5.5); Sodium, Blood 134.0 mmol/L (136-145); Total Protein, Blood 6.7 g/dL (6.4-8.2)
[2025-08-14 02:09] LABS: Calcium, Blood 8.5 mg/dL (8.5-10.1)
[2025-08-14] MEDS ORDERED: Insulin Human Lispro 100 Units/ML 3ML Syringe SC SCH (07:30)
--- NOTE | 2025-08-14 08:45 | NUR ---
ASSUMPTION OF CARE PATIENT BROUGHT UP VIA GURNEY FROM ER. PATIENT AMBULATED FROM GURNEY TO BED, EXHIBITS SIGNIFICANT SHORTNESS OF BREATH DURING AMBULATION. VSS, TELE IN PLACE, SPO2 >90% ON 6L VIA NC. PATIENT UP IN BED, BED IN LOWEST POSITION, CALL LIGHT WITHIN REACH.
[2025-08-14 08:50] VITALS: BP 144/59
[2025-08-14] MEDS ORDERED: ASPI81CH PO (12:07)
[2025-08-14] MEDS ORDERED: SPIR25 PO (12:07)
[2025-08-14] MEDS ORDERED: FARXIGA10 MG PO (12:08)
[2025-08-14] MEDS ORDERED: SOAANZ20 M1 PO (12:09)
[2025-08-14] MEDS ORDERED: POTA10T PO (12:10)
[2025-08-14] MEDS ORDERED: AMOX-CLAV 875-1 EAC5 PO (12:27)
[2025-08-14] MEDS ORDERED: DOXYCYCLINE HYC PO (12:28)
[2025-08-14 12:40] VITALS: BP 137/55
[2025-08-14 15:39] VITALS: BP 135/63
--- NOTE | 2025-08-14 17:52 | NUR ---
SHIFT SUMMARY PATIENT IS ALERT AND ORIENTED, ABLE TO FOLLOW COMMANDS, AND MAKE NEEDS KNOWN. VSS, TELE IN PLACE, SINUS RHYTHM 80'S-100'S. SPO2 >90% ON 2-4L VIA NC WHILE AT REST, PATIENT DESATS WHILE SLEEPING AND DURING EXERTION, REQUIRING UP TO 8L. PATIENT IS SHORT OF BREATH DURING CONVERSATION AND HAS DIFFICULTY FINISHING SENTENCES INTERMITTENTLY. PATIENT REPORTED MILD NAUSEA THAT HAS IMPROVED BY END OF SHIFT, ABDOMEN IS DISTENDED AND FIRM UPON PALPATION, PATIENT REPORTS INCREASED BLOATING FROM BASELINE. PATIENT HAS SIGNIFICANT BLE EDEMA WITH WOUNDS TO BILATERAL GREAT TOES, PHOTOS IN CHART. PATIENT HAS REPORTED MILD TO SEVERE PAIN IN RIGHT GREAT TOE THIS SHIFT, ANALGESICS PROVIDED PER EMAR. PATIENT IS A SBA TO THE BATHROOM FOR LINE AND CORD MANAGEMENT. PATIENT IN RECLINER, CHAIR ALARM IN PLACE, CALL LIGHT WITHIN REACH.
[2025-08-14 20:10] VITALS: BP 133/58
[2025-08-14] MEDS ORDERED: CefTRIAXone Sodium 1,000 MG in NS 100 ML IV SCH (21:00)
--- NOTE | 2025-08-14 21:31 | NUR ---
ASSUMED CARE OF PT AT 1900 PT IS A+O X4 ABLE TO MAKE NEEDS KNOWN, SITTING UP IN RECLINER. PT MEDREC COMPLETED, CALL PLACED TO RESIDENT MD ARCHER FOR HOME MED DILATIN TO BE ORDERED AT PT REQUEST. NO NEW ORDERS AT THIS TIME. CALL LIGHT IN REACH.
[2025-08-14 23:45] VITALS: BP 128/52
[2025-08-15 03:21] VITALS: BP 117/52
[2025-08-15 03:40] LABS: BASOPHILS ABSOLUTE AUTO 0.01 K/mm3 (0.00-0.23); BASOPHILS PERCENT AUTO 0 % (0-2); EOSINOPHILS ABSOLUTE AUTO 0.00 K/mm3 (0.00-0.68); EOSINOPHILS PERCENT AUTO 0 % (0-6); Hematocrit 34.1 % (37.0-53.0); Hemoglobin 10.9 g/dL (13.5-17.5); IMMATURE GRAN ABSOLUTE AUTO 0.04 K/mm3 (0.00-0.10); IMMATURE GRAN PERCENT AUTO 0 % (0-1); LYMPHOCYTES ABSOLUTE AUTO 0.71 K/mm3 (0.84-5.20); LYMPHOCYTES PERCENT AUTO 7 % (21-46); MONOCYTES ABSOLUTE AUTO 0.49 K/mm3 (0.16-1.47); MONOCYTES PERCENT AUTO 5 % (4-13); Mean Corpuscular HGB Conc 32.0 g/dL (31.5-36.5); Mean Corpuscular Volume 90 fL (80-100); NEUTROPHILS ABSOLUTE AUTO 9.41 K/mm3 (1.96-9.15); NEUTROPHILS PERCENT AUTO 88 % (41-73); NRBC ABSOLUTE 0.00 K/mm3 (0.00-0.02); NRBC Auto 0.0 /100 WBC (0.0-0.2); Platelet Count 163 K/mm3 (150-400); RDW Coefficient Variation 16.4 % (11.7-14.2); RDW Standard Deviation 54.2 fL (35.1-46.3)
[2025-08-15 03:59] LABS: Anion Gap 7.0 mmol/L (3-11); Blood Urea Nitrogen 25.0 mg/dL (8-24); CO2, Blood 27.0 mmol/L (21-32); Calcium, Blood 8.2 mg/dL (8.5-10.1); Chloride, Blood 103.0 mmol/L (98-108); Creatinine, Blood 0.82 mg/dL (0.60-1.20); Glucose, Blood 178.0 mg/dL (70-99); Potassium, Blood 4.2 mmol/L (3.5-5.5); Sodium, Blood 133.0 mmol/L (136-145)
--- NOTE | 2025-08-15 05:36 | NUR ---
NOC SHIFT SUMMARY PT IS A&OX4 ABLE TO MAKE NEEDS KNOWN, USES CALL LIGHT. PT SLEPT ON AND OFF DURING THE SHIFT UP IN THE RECLINER, PT STATES HE SLEEPS IN A RECLINER AT HOME. THIS RN OFFERED TO PUT FEET UP ON RECLINER D/T SWELLING IN LOWER EXTERMITIES PT DENIED. PT VSS, WEARING 4L VIA NC NO ISSUES OF DESATS OVER NIGHT. HE IS BREATHING EVEN AND UNLABORED, NO SIGNS OF ACUTE DISTRESS. COUGH NOTED WITH SPUTUM PRODUCTION, PT IS ALSO BLOWING HIS NOSE OFTEN WHEN AWAKE. PT DENIED NEED FOR PRN PAIN MEDICATION DURING THE NIGHT. CHAIR ALARM IN PLACE, CALL LIGHT IN REACH. CARE CONTINUES, WILL REPORT TO ONCOMING RN.
[2025-08-15] MEDS ORDERED: Tiotropium Bromide 2.5 MCG/ACT MIST INHAL (10 ACT/4 GM) INH SCH (08:30)
[2025-08-15 08:54] VITALS: BP 140/67
[2025-08-15 11:26] VITALS: BP 131/56
--- NOTE | 2025-08-15 14:31 | NUR ---
1433- SPOKE WITH DR. FARAH VIA PHONE REGARDING PT PAIN CONTROL. REPORTS PAIN 6/10 TO R TOE AFTER OXYCODONE ADMINISTRATION. ORDERS UPDATED PER DR. FARAH VERBAL. SEE EMAR FOR DETAILS.
[2025-08-15 14:57] VITALS: BP 137/91
[2025-08-15] MEDS ORDERED: CeFAZolin Sodium 1,000 MG in NS 50 ML IV SCH (16:30)
--- NOTE | 2025-08-15 18:41 | NUR ---
UPDATE CONTACTED PROVIDER REGARDING INSULIN ORDERS. PER PROVIDER, DO NOT GIVE 1630 INSULIN, CONTACT PROVIDER WITH GLUCOSE >300 THIS PM.
--- NOTE | 2025-08-15 18:49 | NUR ---
SHIFT SUMMARY PATIENT IS ALERT AND ORIENTED, ABLE TO FOLLOW COMMANDS AND MAKE NEEDS KNOWN. VSS, SINUS IN 70'S TO 100'S, SPO2 >90% ON 2L VIA NC. PATIENT DENIES PRESENCE OF CHEST PAIN OR PRESSURE. PATIENT DENIES N/V, REPORTS SOME ABDOMINAL DISCOMFORT DUE TO BLOATING. WOUND NOTED ON RIGHT TOE WITH DRY YELLOW DRAINAGE PRESENT. CULTURE OBTAINED THIS SHIFT, NEW WOUND CARE ORDERS RECEIVED. PATIENT IS A SBA FOR LINE MANAGEMENT AND SHORTNESS OF BREATH.
--- NOTE | 2025-08-15 18:52 | NUR ---
SHIFT SUMMARY PATIENT IS RESPONSIVE TO VERBAL STIMULI, UNABLE FOLLOW COMMANDS OR MAKE NEEDS KNOWN. PATIENT HAS BEEN AGITATED THIS SHIFT, IN SOFT WRIST RESTRAINTS AT START OF SHIFT, IN MITTENS BY END OF SHIFT DUE TO ATTEMPTS TO REMOVE LINES. TELE IN PLACE, AFIB 100'S-130'S, INCREASED HR WITH AGITATION. SPO2 >90% ON 4L VIA FACE MASK, LABORED BREATHING IS NOTED. PATIENT UNABLE TO REPORT NAUSEA OR VOMITING. SOLORIO CATHETER REMOVED THIS SHIFT, NO URINE OUTPUT NOTED SINCE REMOVAL, BLADDER SCAN PERFORMED 160ML NOTED IN BLADDER, WILL CONTINUE TO MONITOR. PATIENT IS A MAX ASSIST FOR REPOSITIONS. PATIENT IS UP IN BED, MITTENS IN PLACE, BED IN LOWEST POSITION.
[2025-08-15] MEDS ORDERED: Lactobacil 2-S.Thermo-Bifido 1 1 Cap PO SCH (21:00)
[2025-08-15 21:30] VITALS: BP 128/59
[2025-08-16 00:17] VITALS: BP 132/73
[2025-08-16 03:41] VITALS: BP 152/71
[2025-08-16 05:44] LABS: BASOPHILS ABSOLUTE AUTO 0.02 K/mm3 (0.00-0.23); BASOPHILS PERCENT AUTO 0 % (0-2); EOSINOPHILS ABSOLUTE AUTO 0.05 K/mm3 (0.00-0.68); EOSINOPHILS PERCENT AUTO 1 % (0-6); Hematocrit 32.9 % (37.0-53.0); Hemoglobin 10.2 g/dL (13.5-17.5); IMMATURE GRAN ABSOLUTE AUTO 0.02 K/mm3 (0.00-0.10); IMMATURE GRAN PERCENT AUTO 0 % (0-1); LYMPHOCYTES ABSOLUTE AUTO 0.95 K/mm3 (0.84-5.20); LYMPHOCYTES PERCENT AUTO 18 % (21-46); MONOCYTES ABSOLUTE AUTO 0.46 K/mm3 (0.16-1.47); MONOCYTES PERCENT AUTO 9 % (4-13); Mean Corpuscular HGB Conc 31.0 g/dL (31.5-36.5); Mean Corpuscular Volume 91 fL (80-100); NEUTROPHILS ABSOLUTE AUTO 3.76 K/mm3 (1.96-9.15); NEUTROPHILS PERCENT AUTO 71 % (41-73); NRBC ABSOLUTE 0.00 K/mm3 (0.00-0.02); NRBC Auto 0.0 /100 WBC (0.0-0.2); Platelet Count 166 K/mm3 (150-400); RDW Coefficient Variation 15.9 % (11.7-14.2); RDW Standard Deviation 52.5 fL (35.1-46.3)
[2025-08-16 06:17] LABS: Anion Gap 6.0 mmol/L (3-11); Blood Urea Nitrogen 24.0 mg/dL (8-24); CO2, Blood 30.0 mmol/L (21-32); Calcium, Blood 7.9 mg/dL (8.5-10.1); Chloride, Blood 101.0 mmol/L (98-108); Creatinine, Blood 0.82 mg/dL (0.60-1.20); Glucose, Blood 147.0 mg/dL (70-99); Potassium, Blood 3.8 mmol/L (3.5-5.5); Sodium, Blood 133.0 mmol/L (136-145)
--- NOTE | 2025-08-16 06:33 | NUR ---
NOC SHFT SUMMARY PT A&OX4 ABLE TO MAKE NEEDS KNOWN, USES CALL LIGHT. SITS UP IN RECLINER MOST OF THE SHIFT USES URINAL INDEPT. PT WAS ABLE TO REST ON AND OFF IN BETWEEN CARES. R GREATER TOE DRESSING CHANGE DONE (VERY PAINFUL FOR PATIENT AFTER CULTURE YESTERDAY). PRN PAIN MEDICATIONS DO HELP MAKE THE PAIN MORE MANAGABLE. IV ABX GIVEN PER EMAR. VSS. O2 SATS >90% ON 2L NC. PT DENIES SOB, BREATHING EVEN AND UNLABORED. DENIES NEEDS AT THIS TIME. WILL REPORT TO ONCOMING RN.
[2025-08-16] MEDS ORDERED: Insulin Regular 100 UNIT/ML 10ML Vial SC SCH (07:30)
[2025-08-16 08:19] VITALS: BP 142/52
[2025-08-16] MEDS ORDERED: VISBIOME 112.51 EACH PO (15:46)
[2025-08-16] MEDS ORDERED: CEPH500 PO (15:47)
[2025-08-16] MEDS ORDERED: TRAM50 PO (15:48)
[2025-08-16 16:36] VITALS: BP 157/58
[2025-08-16 16:37] VITALS: BP 157/58
--- NOTE | 2025-08-16 17:04 | NUR ---
SHIFT SUMMARY PT A&OX4, PLEASANT AND COOPERATIVE WITH CARE. AMBULATORY WITHOUT ASSISTANCE. C/O MODERATE PAIN TO R BIG TOE, MEDICATED WITH PRN PAIN MEDS WITH ADEQUATE RELIEF. DRESSING CHANGED WITH MEDIHONEY & NONADHERENT DRESSING. PT TOLERATING PO INTAKE WELL. NO OTHER COMPLAINTS FROM PATIENT. DISCHARGE PAPERWORK COMPLETE, AWAITING IV ABX TO COMPLETE. MEDICATIONS FAXED TO [facility]. HARD COPY OF TRAMADOL GIVEN TO PTS SPOUSE.
[2025-08-16 17:30] VITALS: BP 155/86
== END 2025-08-16 17:15 | disposition home or self-care (01) | DRG 853 ==
LOC: ER 20:12 → ERHOLD 23:31 → PCU 23:31
PROVIDERS: Family Medicine; Internal Medicine; Student in an Organized Health Care Education/Training Program; ADMIT Internal Medicine
PROC: 3E03329 Introduction of Other Anti-infective into Peripheral Vein, Percutaneous Approach (ICD-10-PCS; 2025-08-13)
PROC: 0JBQ0ZZ Excision of Right Foot Subcutaneous Tissue and Fascia, Open Approach (ICD-10-PCS; principal; 2025-08-15)
DX: A41.9 Sepsis, unspecified organism (principal); J18.9 Pneumonia, unspecified organism; J96.21 Acute and chronic respiratory failure with hypoxia; L03.115 Cellulitis of right lower limb; J44.1 Chronic obstructive pulmonary disease with (acute) exacerbation; J44.0 Chronic obstructive pulmonary disease with (acute) lower respiratory infection; D64.9 Anemia, unspecified; D69.6 Thrombocytopenia, unspecified; R00.0 Tachycardia, unspecified; E11.65 Type 2 diabetes mellitus with hyperglycemia; E11.621 Type 2 diabetes mellitus with foot ulcer; L97.519 Non-pressure chronic ulcer of other part of right foot with unspecified severity; G40.909 Epilepsy, unspecified, not intractable, without status epilepticus; R65.20 Severe sepsis without septic shock; Z99.81 Dependence on supplemental oxygen; Z87.891 Personal history of nicotine dependence; Z85.828 Personal history of other malignant neoplasm of skin; Z85.46 Personal history of malignant neoplasm of prostate; Z79.51 Long term (current) use of inhaled steroids; Z79.82 Long term (current) use of aspirin; Z79.84 Long term (current) use of oral hypoglycemic drugs; Z79.899 Other long term (current) drug therapy
CPT/HCPCS: 36415; 71045; 71260; 73620; 80048; 80053; 81001; 82947; 83605; 83880; 84484; 85014; 85018; 85025; 85379; 87070; 87077; 87186; 87205; 87637; 93005; 93010; 94640; 94664; 94762; 99285-25; A9270; J0456; J0690; J0696; J1650; J1815; J2919; J7030; J7050; J7512; Q9967

== ENCOUNTER 2025-08-21 11:31 | Inpatient (IN) | payer OTHER ==
[~2025-08-21] VITALS: Ht 180.3 cm; Wt 116.0 kg
[~2025-08-21 11:31] MED LIST changes: +AMOX-CLAV 875-1 EAC5 PO; +ASPI81CH PO; +CEPH500 PO; +DOXYCYCLINE HYC PO; -Enoxaparin 40 MG/0.4 ML SYR SC SCH; +FLUTICASONE-SAL12 G1 INH; -FLUTICASONE-SAL12 G1 PO; +POTA10T PO; +SOAANZ20 M1 PO; +SPIR25 PO; +TRAM50 PO; +VISBIOME 112.51 EACH PO
[2025-08-21 12:37] LABS: BASOPHILS ABSOLUTE AUTO 0.02 K/mm3 (0.00-0.23); BASOPHILS PERCENT AUTO 0 % (0-2); EOSINOPHILS ABSOLUTE AUTO 0.08 K/mm3 (0.00-0.68); EOSINOPHILS PERCENT AUTO 1 % (0-6); Hematocrit 33.4 % (37.0-53.0); Hemoglobin 10.9 g/dL (13.5-17.5); IMMATURE GRAN ABSOLUTE AUTO 0.11 K/mm3 (0.00-0.10); IMMATURE GRAN PERCENT AUTO 2 % (0-1); LYMPHOCYTES ABSOLUTE AUTO 0.61 K/mm3 (0.84-5.20); LYMPHOCYTES PERCENT AUTO 9 % (21-46); MONOCYTES ABSOLUTE AUTO 0.49 K/mm3 (0.16-1.47); MONOCYTES PERCENT AUTO 7 % (4-13); Mean Corpuscular HGB Conc 32.6 g/dL (31.5-36.5); Mean Corpuscular Volume 87 fL (80-100); NEUTROPHILS ABSOLUTE AUTO 5.42 K/mm3 (1.96-9.15); NEUTROPHILS PERCENT AUTO 81 % (41-73); NRBC ABSOLUTE 0.00 K/mm3 (0.00-0.02); NRBC Auto 0.0 /100 WBC (0.0-0.2); Platelet Count 228 K/mm3 (150-400); RDW Coefficient Variation 15.6 % (11.7-14.2); RDW Standard Deviation 49.7 fL (35.1-46.3)
[2025-08-21 13:00] LABS: Alanine Aminotransfer (ALT/SGP 59.0 U/L (12-78); Albumin, Blood 2.8 g/dL (3.4-5.0); Albumin/Globulin Ratio 0.7 (0.8-1.8); Anion Gap 7.0 mmol/L (3-11); Aspartate Aminotrans (AST/SGOT 32.0 U/L (12-37); Bilirubin, Total 0.3 mg/dL (0.1-1.0); Blood Urea Nitrogen 25.0 mg/dL (8-24); C-REACTIVE PROTEIN, EXT RANGE 18.3 mg/dL (0.000-0.300); CO2, Blood 31.0 mmol/L (21-32); Calcium, Blood 9.5 mg/dL (8.5-10.1); Chloride, Blood 95.0 mmol/L (98-108); Creatinine, Blood 0.87 mg/dL (0.60-1.20); Globulin, Blood 4.2 g/dL (2.2-4.0); Glucose, Blood 236.0 mg/dL (70-99); Potassium, Blood 4.4 mmol/L (3.5-5.5); Sodium, Blood 129.0 mmol/L (136-145); Total Protein, Blood 7.0 g/dL (6.4-8.2)
[2025-08-21] MEDS ORDERED: Cefepime HCl 2,000 MG in NS 100 ML IV ONE (13:25)
[2025-08-21] MEDS ORDERED: FLU VACC TS2025(65UP)/MF59C/PF 45 MCG/0.5 ML SYRINGE IM SCH (13:35)
[2025-08-21] MEDS ORDERED: METF500 PO (13:41)
[2025-08-21] MEDS ORDERED: ALBU2.5V5 INH (13:42)
[2025-08-21] MEDS ORDERED: ALBU90OI INH (13:42)
[2025-08-21] MEDS ORDERED: Piperacillin/Tazobactam Sod 3.375 GM in NS 100 ML IV SCH (14:00)
[2025-08-21] MEDS ORDERED: Albuterol 2.5 MG/3 ML VIAL INH PRN (15:55)
[2025-08-21] MEDS ORDERED: Tiotropium Bromide 2.5 MCG/ACT MIST INHAL (10 ACT/4 GM) INH SCH (16:00)
[2025-08-21] MEDS ORDERED: Formoterol/Mometasone MDI 5/200 mcg 13 GM INH SCH (16:10)
[2025-08-21] MEDS ORDERED: Insulin Regular 100 UNIT/ML 10ML Vial SC SCH (16:30)
[2025-08-21] MEDS ORDERED: NS 250 ML IV PRN (17:45)
[2025-08-21 19:24] VITALS: BP 141/52
--- NOTE | 2025-08-21 19:29 | NUR ---
SHIFT SUMMARY PT ADMITTED ON FLOOR AT 1620. WEIGHT MEASURED VIA STANDING SCALE. PT AMBULATES WITH CANE. PT REPORTS "HAVE SOME BALANCE ISSUES." ADMISSION ASSESS COMPLETE. 2 RN SKIN CHECK COMPLETE WITH WARREN PITTS RN. PT A&OX4. PT ADMITTED DUE TO CELLULITIS ON R LEG . PHOTO IN CHART. PT REPORTS PAIN ON R LEG, MEDICATED PER EMAR. BILATERAL ANKLES ARE EDEMITIS. PT DECLINED ELAVATING FEET. PT ON LASIX. VSS. PT HAS DENTURES. DENTURES IN MOUTH. PT HAS HX OF COPD. REPORTS USES 2-3 LITERS OF O2 AT REST. PT REPORTS INCREASING O2 TO 4-5 L WITH AMBULATION. PT HAS HX OF SEIZURES, REPORTS "IF WITHOUT MEDS FOR 3 DAYS WILL HAVE GRAND MAL SEIZURE." HOME MEDS IN LOCKED DRAWER. PT REPORTS NEEDING INHALER TONIGHT. MED REC NOT COMPLETED, REPORTED TO NIGHT RN. PT HAS NEW IV AT L WRIST. PT GETTING IV ANTIBIOTICS. PT REPORTS MOST COMFORTABLE IN RECLINER, RECLINER LOCKED. WHEN ASKED ABOUT RESUSCITATION WISHES, PT STATES "WANT CPR BUT IF VENTILATED PULL THE PLUG." PT REPORTS "HAVE A PAPER AT HOME WILL HAVE BRING IT IN." PT ACHS BLOOD SUGAR, INSULIN COVERED AT DINNER. CALL LIGHT IN REACH.
[2025-08-21] MEDS ORDERED: Lactobacil 2-S.Thermo-Bifido 1 1 Cap PO SCH (21:00)
[2025-08-21] MEDS ORDERED: Insulin Glargine 100 Unit/ML 3 ML SYR SC SCH (21:00)
[2025-08-22 03:57] VITALS: BP 137/65
[2025-08-22 05:42] LABS: BASOPHILS ABSOLUTE AUTO 0.01 K/mm3 (0.00-0.23); BASOPHILS PERCENT AUTO 0 % (0-2); EOSINOPHILS ABSOLUTE AUTO 0.17 K/mm3 (0.00-0.68); EOSINOPHILS PERCENT AUTO 3 % (0-6); Hematocrit 34.1 % (37.0-53.0); Hemoglobin 11.0 g/dL (13.5-17.5); IMMATURE GRAN ABSOLUTE AUTO 0.12 K/mm3 (0.00-0.10); IMMATURE GRAN PERCENT AUTO 2 % (0-1); LYMPHOCYTES ABSOLUTE AUTO 0.80 K/mm3 (0.84-5.20); LYMPHOCYTES PERCENT AUTO 13 % (21-46); MONOCYTES ABSOLUTE AUTO 0.59 K/mm3 (0.16-1.47); MONOCYTES PERCENT AUTO 9 % (4-13); Mean Corpuscular HGB Conc 32.3 g/dL (31.5-36.5); Mean Corpuscular Volume 89 fL (80-100); NEUTROPHILS ABSOLUTE AUTO 4.70 K/mm3 (1.96-9.15); NEUTROPHILS PERCENT AUTO 74 % (41-73); NRBC ABSOLUTE 0.00 K/mm3 (0.00-0.02); NRBC Auto 0.0 /100 WBC (0.0-0.2); Platelet Count 248 K/mm3 (150-400); RDW Coefficient Variation 15.8 % (11.7-14.2); RDW Standard Deviation 51.0 fL (35.1-46.3)
[2025-08-22 06:05] LABS: Anion Gap 8.0 mmol/L (3-11); Blood Urea Nitrogen 25.0 mg/dL (8-24); CO2, Blood 30.0 mmol/L (21-32); Calcium, Blood 9.0 mg/dL (8.5-10.1); Chloride, Blood 97.0 mmol/L (98-108); Creatinine, Blood 1.01 mg/dL (0.60-1.20); Glucose, Blood 159.0 mg/dL (70-99); Potassium, Blood 4.0 mmol/L (3.5-5.5); Sodium, Blood 131.0 mmol/L (136-145)
--- NOTE | 2025-08-22 06:21 | NUR ---
SHIFT SUMMARY; PT A/OX4, PLEASANT, AND COOPERATIVE WITH CARE. LUNGS ASCULTATED AND EXPIRATORY WHEEZES NOTED WITHIN RML/RLL. PT ON 2-3 L OF O2 NC. BILATERAL REDNESS AND 3+ PITTING EDEMA NOTED IN ASSESSMENT, RLE WORSE. HS CBG AT 213. PT MEDICATED PER EMAR. PT REMAINS IN CHAIR THROUGHOUT THE NIGHT AND SLEPT SITTING UP. VSS. CALL LIGHT WITHIN REACH.
[2025-08-22 07:43] VITALS: BP 127/53
[2025-08-22] MEDS ORDERED: Potassium Chloride 10 Meq Tablet SA PO SCH (09:00)
[2025-08-22] MEDS ORDERED: Enoxaparin 40 MG/0.4 ML SYR SC SCH (09:00)
[2025-08-22] MEDS ORDERED: METFORMIN HCL500 M3 PO (14:52)
[2025-08-22] MEDS ORDERED: CEPH500 PO (14:59)
[2025-08-22 15:42] VITALS: BP 124/54
--- NOTE | 2025-08-22 19:33 | NUR ---
SHIFT SUMMARY: NO NEW OR ACUTE CHANGES THIS SHIFT. PATIENT REMAINS A+O X4 AND ABLE TO MAKE NEEDS KNOWN. CELLULITIS IS NOTED TO BE IMPROVING SLIGHTLY. BLE EDEMA STILL NOTED UPON ASSESSMENT. RUDDY WRAP APPLIED PER DOCTORS ORDER. NO WEEPING NOTED THIS SHIFT. PATIENT REMAINS ON 2L O2 VIA NC. NO COMPLAINTS OF SOB WHEN UP AND AMBULATING. S1 S2 HEARD ON ASCULTATION WITH CLEAR BREATH SOUNDS THROUGHOUT. SKIN INTACT WITH SUBTLE REDNESS ON RLE. PATIENT HAS NOT HAD BM THIS SHIFT. URINARY OUTPUT HAS BEEN GREATLY IMPROVED D/T DIARETICS. PLAN TO CONTINUE IV ABX AT THIS TIME.
[2025-08-22 19:49] VITALS: BP 129/51
[2025-08-23 02:48] VITALS: BP 124/57
[2025-08-23 06:05] LABS: BASOPHILS ABSOLUTE AUTO 0.02 K/mm3 (0.00-0.23); BASOPHILS PERCENT AUTO 0 % (0-2); EOSINOPHILS ABSOLUTE AUTO 0.15 K/mm3 (0.00-0.68); EOSINOPHILS PERCENT AUTO 2 % (0-6); Hematocrit 35.1 % (37.0-53.0); Hemoglobin 11.1 g/dL (13.5-17.5); IMMATURE GRAN ABSOLUTE AUTO 0.04 K/mm3 (0.00-0.10); IMMATURE GRAN PERCENT AUTO 1 % (0-1); LYMPHOCYTES ABSOLUTE AUTO 0.75 K/mm3 (0.84-5.20); LYMPHOCYTES PERCENT AUTO 11 % (21-46); MONOCYTES ABSOLUTE AUTO 0.54 K/mm3 (0.16-1.47); MONOCYTES PERCENT AUTO 8 % (4-13); Mean Corpuscular HGB Conc 31.6 g/dL (31.5-36.5); Mean Corpuscular Volume 89 fL (80-100); NEUTROPHILS ABSOLUTE AUTO 5.41 K/mm3 (1.96-9.15); NEUTROPHILS PERCENT AUTO 78 % (41-73); NRBC ABSOLUTE 0.00 K/mm3 (0.00-0.02); NRBC Auto 0.0 /100 WBC (0.0-0.2); Platelet Count 272 K/mm3 (150-400); RDW Coefficient Variation 15.7 % (11.7-14.2); RDW Standard Deviation 51.4 fL (35.1-46.3)
--- NOTE | 2025-08-23 06:34 | NUR ---
SHIFT SUMMARY; PT A/O X4, PLEASANT, AND COOPERATIVE WITH CARE. NIGHT TIME CBG ELEVATED. PT MEDICATED PER EMAR. BILATERAL LE APPEAR EDEMATOUS AND RED. BOTH LE WRAPPED IN GAUZE AND [place]BAN. PT EXPERIENCES PAIN IN BILATERAL LE AND TRAMADOL GIVEN PER EMAR FOR PAIN CONTROL. VSS. CALL LIGHT WITHIN REACH AND BED IN LOW POSITION.
[2025-08-23 06:36] LABS: Alanine Aminotransfer (ALT/SGP 56.0 U/L (12-78); Albumin, Blood 2.9 g/dL (3.4-5.0); Albumin/Globulin Ratio 0.6 (0.8-1.8); Anion Gap 9.0 mmol/L (3-11); Aspartate Aminotrans (AST/SGOT 28.0 U/L (12-37); Bilirubin, Total 0.5 mg/dL (0.1-1.0); Blood Urea Nitrogen 25.0 mg/dL (8-24); CO2, Blood 32.0 mmol/L (21-32); Calcium, Blood 8.9 mg/dL (8.5-10.1); Chloride, Blood 96.0 mmol/L (98-108); Creatinine, Blood 1.15 mg/dL (0.60-1.20); Globulin, Blood 4.6 g/dL (2.2-4.0); Glucose, Blood 144.0 mg/dL (70-99); Magnesium, Blood 2.7 mg/dL (1.6-2.4); Phosphorus, Blood 3.7 mg/dL (2.5-4.9); Potassium, Blood 3.8 mmol/L (3.5-5.5); Sodium, Blood 133.0 mmol/L (136-145); Total Protein, Blood 7.5 g/dL (6.4-8.2)
[2025-08-23 09:07] VITALS: BP 133/65
[2025-08-23 15:17] VITALS: BP 126/99
[2025-08-23 15:19] VITALS: BP 130/54
--- NOTE | 2025-08-23 18:40 | NUR ---
PATIENT A/OX4, UP INDEPENDENTLY IN ROOM WITH CANE. VSS, ON 2LO2. ZOSYN Q6 HOURS TO TREAT CELLULITIS. PATIENT IS PLEASANT AND COOPERATIVE AND CALLS APPROPRIATELY FOR ASSISTANCE. NO NEW CONCERNS THIS SHIFT.
[2025-08-23 19:43] VITALS: BP 120/97
--- NOTE | 2025-08-24 04:06 | NUR ---
SHIFT SUMMARY ADMITTED FOR BLE CELLULITIS. FULL CODE. IV ANTIB RX ARE SCHEDULED. WE ARE DIURESING HIM. A&O X4, INDEPENDENT W/CANE. ON 2 LPM O2 THAT IS HIS BASELINE. BLE EDEMA 3+. PAIN MEDICATION GIVEN THIS SHIFT. NO NEW CONCERNS THIS SHIFT.
[2025-08-24 05:49] VITALS: BP 136/67
[2025-08-24 06:14] LABS: BASOPHILS ABSOLUTE AUTO 0.02 K/mm3 (0.00-0.23); BASOPHILS PERCENT AUTO 0 % (0-2); EOSINOPHILS ABSOLUTE AUTO 0.19 K/mm3 (0.00-0.68); EOSINOPHILS PERCENT AUTO 3 % (0-6); Hematocrit 35.1 % (37.0-53.0); Hemoglobin 11.3 g/dL (13.5-17.5); IMMATURE GRAN ABSOLUTE AUTO 0.05 K/mm3 (0.00-0.10); IMMATURE GRAN PERCENT AUTO 1 % (0-1); LYMPHOCYTES ABSOLUTE AUTO 1.06 K/mm3 (0.84-5.20); LYMPHOCYTES PERCENT AUTO 14 % (21-46); MONOCYTES ABSOLUTE AUTO 0.59 K/mm3 (0.16-1.47); MONOCYTES PERCENT AUTO 8 % (4-13); Mean Corpuscular HGB Conc 32.2 g/dL (31.5-36.5); Mean Corpuscular Volume 88 fL (80-100); NEUTROPHILS ABSOLUTE AUTO 5.67 K/mm3 (1.96-9.15); NEUTROPHILS PERCENT AUTO 75 % (41-73); NRBC ABSOLUTE 0.00 K/mm3 (0.00-0.02); NRBC Auto 0.0 /100 WBC (0.0-0.2); Platelet Count 278 K/mm3 (150-400); RDW Coefficient Variation 15.4 % (11.7-14.2); RDW Standard Deviation 49.9 fL (35.1-46.3)
[2025-08-24 07:27] VITALS: BP 128/82
[2025-08-24 09:05] LABS: Alanine Aminotransfer (ALT/SGP 58.0 U/L (12-78); Albumin, Blood 2.9 g/dL (3.4-5.0); Albumin/Globulin Ratio 0.6 (0.8-1.8); Anion Gap 14.0 mmol/L (3-11); Aspartate Aminotrans (AST/SGOT 33.0 U/L (12-37); Bilirubin, Total 0.4 mg/dL (0.1-1.0); Blood Urea Nitrogen 27.0 mg/dL (8-24); CO2, Blood 30.0 mmol/L (21-32); Calcium, Blood 9.2 mg/dL (8.5-10.1); Chloride, Blood 95.0 mmol/L (98-108); Creatinine, Blood 1.25 mg/dL (0.60-1.20); Globulin, Blood 4.8 g/dL (2.2-4.0); Glucose, Blood 134.0 mg/dL (70-99); Magnesium, Blood 2.7 mg/dL (1.6-2.4); Potassium, Blood 3.6 mmol/L (3.5-5.5); Sodium, Blood 135.0 mmol/L (136-145); Total Protein, Blood 7.7 g/dL (6.4-8.2)
[2025-08-24] MEDS ORDERED: Polyethylene Glycol 3350 17 gm PO SCH ×2 (10:00→21:00)
[2025-08-24 13:56] VITALS: BP 126/57
--- NOTE | 2025-08-24 17:45 | NUR ---
PATIENT A/OX4, UP INDEPENDENTLY WITH CANE. VSS, ON RA. PAIN MANAGED WITH TRAMADOL Q6 HOURS. ACHS BLOOD SUGARS, COVERAGE PER SLIDING SCALE. ZOSYN CHANGED TO CIPRO TODAY. COOPERATIVE WITH CARE, ABLE TO MAKE NEEDS KNOWN.
[2025-08-24 19:36] VITALS: BP 138/51
[2025-08-24] MEDS ORDERED: Ciprofloxacin 400MG/D5 200ML 200 ML IV SCH (21:00)
[2025-08-25 02:27] VITALS: BP 129/61
--- NOTE | 2025-08-25 04:01 | NUR ---
SHIFT SUMMARY ADMITTED FOR BLE CELLULITIS. FULL CODE. IV ANTIB RX ARE SCHEDULED. WE ARE DIURESING HIM. HE IS HOPEFUL FOR DC HOME. ACHS CBG'S - MED SS. ADA DIET. ADA DIET. A&O X4. ON 2 LPM O2 AT BASELINE. PAIN RX GIVEN THIS SHIFT. NO NEW CONCERNS.
[2025-08-25 06:11] LABS: BASOPHILS ABSOLUTE AUTO 0.01 K/mm3 (0.00-0.23); BASOPHILS PERCENT AUTO 0 % (0-2); EOSINOPHILS ABSOLUTE AUTO 0.21 K/mm3 (0.00-0.68); EOSINOPHILS PERCENT AUTO 3 % (0-6); Hematocrit 34.8 % (37.0-53.0); Hemoglobin 11.3 g/dL (13.5-17.5); IMMATURE GRAN ABSOLUTE AUTO 0.04 K/mm3 (0.00-0.10); IMMATURE GRAN PERCENT AUTO 1 % (0-1); LYMPHOCYTES ABSOLUTE AUTO 0.95 K/mm3 (0.84-5.20); LYMPHOCYTES PERCENT AUTO 14 % (21-46); MONOCYTES ABSOLUTE AUTO 0.47 K/mm3 (0.16-1.47); MONOCYTES PERCENT AUTO 7 % (4-13); Mean Corpuscular HGB Conc 32.5 g/dL (31.5-36.5); Mean Corpuscular Volume 87 fL (80-100); NEUTROPHILS ABSOLUTE AUTO 4.99 K/mm3 (1.96-9.15); NEUTROPHILS PERCENT AUTO 75 % (41-73); NRBC ABSOLUTE 0.00 K/mm3 (0.00-0.02); NRBC Auto 0.0 /100 WBC (0.0-0.2); Platelet Count 275 K/mm3 (150-400); RDW Coefficient Variation 15.3 % (11.7-14.2); RDW Standard Deviation 49.1 fL (35.1-46.3)
[2025-08-25 06:43] LABS: Alanine Aminotransfer (ALT/SGP 53.0 U/L (12-78); Albumin, Blood 3.1 g/dL (3.4-5.0); Albumin/Globulin Ratio 0.6 (0.8-1.8); Anion Gap 9.0 mmol/L (3-11); Aspartate Aminotrans (AST/SGOT 27.0 U/L (12-37); Bilirubin, Total 0.4 mg/dL (0.1-1.0); Blood Urea Nitrogen 29.0 mg/dL (8-24); C-REACTIVE PROTEIN, EXT RANGE 11.5 mg/dL (0.000-0.300); CO2, Blood 30.0 mmol/L (21-32); Calcium, Blood 8.6 mg/dL (8.5-10.1); Chloride, Blood 97.0 mmol/L (98-108); Creatinine, Blood 0.94 mg/dL (0.60-1.20); Globulin, Blood 4.8 g/dL (2.2-4.0); Glucose, Blood 121.0 mg/dL (70-99); Potassium, Blood 3.5 mmol/L (3.5-5.5); Sodium, Blood 132.0 mmol/L (136-145); Total Protein, Blood 7.9 g/dL (6.4-8.2)
[2025-08-25 07:53] VITALS: BP 108/68
[2025-08-25] MEDS ORDERED: CIPR500 PO (12:22)
--- NOTE | 2025-08-25 13:54 | NUR ---
DISCHARGE SUMMARY PT EDUCATED ON DISCHARGE PACKET AND INSTRUCTIONS. IV INFILTRATED THIS AM AND WAS REMOVED AT THAT TIME. CLARIFIED WITH DR. MCGREGOR THAT HE ELECTRONICALLY SENT ORDER FOR TRAMADOL TO PT PREFERRED PHARMACY AND SO HE DID NOT NEED A HARD SCRIPT. EDUCATED PT IF HE HAS ANY ISSUES TO CALL THIS UNIT BACK AND WE WILL HAVE DR. BOLTON FILL OUT A SCRIPT. [employer] NETTING WEAVER ALREADY ARRANGED FOLLOW UP APPT AND FOLLOW UP LABWORK AND PT VERBALIZED UNDERSTANDING. PT REQUESTED TO HAVE THIS RN CALL A TAXI FOR HIM, [place] [facility] CALLED AND ARRANGED RIDE. NO OTHER QUESTIONS OR CONCERNS PRIOR TO DC.
== END 2025-08-25 14:02 | disposition home or self-care (01) | DRG 603 ==
LOC: ER 11:31 → ERHOLD 13:32 → MEDS 13:32
PROVIDERS: Emergency Medicine; Hospitalist; ADMIT Family Medicine
DX: L03.115 Cellulitis of right lower limb (principal); E87.1 Hypo-osmolality and hyponatremia; G43.909 Migraine, unspecified, not intractable, without status migrainosus; J44.9 Chronic obstructive pulmonary disease, unspecified; E11.621 Type 2 diabetes mellitus with foot ulcer; D64.9 Anemia, unspecified; L97.519 Non-pressure chronic ulcer of other part of right foot with unspecified severity; Z99.81 Dependence on supplemental oxygen; F32.9 Major depressive disorder, single episode, unspecified; I87.2 Venous insufficiency (chronic) (peripheral); C61 Malignant neoplasm of prostate; E66.01 Morbid (severe) obesity due to excess calories; Z87.891 Personal history of nicotine dependence; Z79.51 Long term (current) use of inhaled steroids; Z79.82 Long term (current) use of aspirin; Z79.84 Long term (current) use of oral hypoglycemic drugs; Z79.899 Other long term (current) drug therapy; Z85.828 Personal history of other malignant neoplasm of skin; Z68.36 Body mass index [BMI] 36.0-36.9, adult
CPT/HCPCS: 36415; 73620; 80048; 80053; 82947; 83605; 83735; 84100; 85025; 85651; 86140; 87040; 94640; 94664; 94760; 99284-25; A9270; J0692; J0744; J1650; J1815; J1938; J2543; J7050